=== PATIENT | female | born 1995 | race Caucasian/White ===

== ENCOUNTER 2021-10-21 01:24 | Observation (INO) | payer OTHER ==
[~2021-10-21] VITALS: Ht 170.2 cm; Wt 75.0 kg
[2021-10-21] VITALS (9 sets, daily range): BP systolic 99–160; BP diastolic 51–97; PULSE 74–97; TEMP 98–98.4
[2021-10-21 02:18] LABS: COLLECTION METHOD CLEAN CATCH
[2021-10-21 02:23] LABS: BASO # 0.1 K/mm3 (0.0-0.2); BASO % 0.4 % (0.0-2.0); EOS # 0.1 K/mm3 (0.0-0.7); EOS % 0.4 % (0.0-4.0); GRAN # 10.1 K/mm3 (1.4-6.5); HEMATOCRIT 38.5 % (37.0-47.0); LYMPH # 2.4 K/mm3 (1.2-3.4); LYMPH % 17.6 % (20.0-51.0); MEAN CELL VOLUME 88 fl (80.0-100.0); MEAN CORPUSCULAR HEMOGLOBIN 30 pg (27-31); MEAN CORPUSCULAR HGB CONC 34 g/dl (33.0-37.0); MEAN PLATELET VOLUME 8.5 fl (7.4-10.4); MONO % 7.3 % (1.7-9.3); PLATELET COUNT 294 K/mm3 (130-400); RED BLOOD COUNT 4.38 M/mm3 (4.10-5.30); REDCELL DISTRIBUTION WIDTH-CV 11.9 % (11.5-14.5)
[2021-10-21 02:31] LABS: AMORPHOUS CRYSTAL Present (NOT PRESENT); SQUAMOUS EPITHELIAL 0-2 /hpf (0-10); URINE BACTERIA Rare /hpf (NONE SEEN); URINE RBC 0-2 /hpf (0-2)
[2021-10-21 02:32] LABS: URINE APPEARANCE Cloudy (CLEAR/HAZY); URINE COLOR Yellow (YELLOW)
[2021-10-21 02:33] LABS: PH 7.5 (5.0-8.5); URINE BLOOD TRACE-INTACT (NEGATIVE); URINE GLUCOSE Negative (NEGATIVE); URINE KETONE 1+ (NEGATIVE); URINE NITRATE Negative (NEGATIVE); URINE PROTEIN(semi-quant) Negative (NEGATIVE); URINE UROBILINOGEN 0.2 E.U/dL (0.2-1.0)
[2021-10-21 02:45] LABS: ALBUMIN 4.1 gm/dL (3.5-5.0); BILIRUBIN,TOTAL 0.7 mg/dL (0.2-1.2); CREATININE, serum 0.85 mg/dL (0.57-1.11); POTASSIUM 4.3 mmol/L (3.5-4.5); TOTAL PROTEIN 7.4 gm/dL (6.2-8.1)
[2021-10-21] MEDS ORDERED: HAILEY 24 FE 11 EACH PO (04:59)
[2021-10-21] MEDS ORDERED: LEXAPRO 10MG10 MG PO (05:00)
[2021-10-21] MEDS ORDERED: BLISOVI 24 FE1 EACH PO (05:00)
--- NOTE | 2021-10-21 10:50 | NUR ---
PT RESTING IN BED. PLAN ON SURGERY AFTER 1130. PAIN CONTROLLED WITH IV MEDS. BOYFRIEND AT BEDSIDE WITH PT. PT DENIES NEEDS OR PAIN AT THIS TIME.
--- NOTE | 2021-10-21 12:21 | NUR ---
Initial visit; Patient resting, Drag Out Man spoke with her significant other and requested that he let Shae know that Drag Out Man visited and wanted her to know Spiritual Care is available at our hospital daily. He said he would be glad to let her know.
[2021-10-21] MEDS ORDERED: NORCO 325 MG-51 TAB PO (12:38)
--- NOTE | 2021-10-21 15:25 | NUR ---
PT TO ROOM 322 POST OP WITH HOANG SAUSAGE SMOKER @1440. PT IS A/O X4, LUNGS CTA, ABDOMINAL INCISION CDI CLOSED WITH GLUE. IV TO LFA, BOWEL SOUNDS HYPO. PT TAKING PO INTAKE WELL. PT'S BOYFRIEND AT BEDSIDE. DISCHARGE WHEN CRITERIA MET.
== END 2021-10-21 19:00 | disposition home or self-care (01) ==
LOC: COL.ER 01:24 → SURG 04:45
PROVIDERS: Emergency Medicine; ADMIT Surgery
DX: K35.891 Other acute appendicitis without perforation, with gangrene (principal)
CPT/HCPCS: G0378; J0690; J1100; J1885; J2175; J2270; J2405; J2543; J2704; J3010; J7030; J7120; Q9967